=== PATIENT | female | born 1935 | race Caucasian/White ===

== ENCOUNTER 2021-06-14 12:01 | Emergency (ER) | payer MEDICARE, OTHER ==
[2021-06-14 13:30] LABS: HEMOGLOBIN 11.7 gm/dl (12.3-15.3); RED BLOOD COUNT 3.7 M/UL (4.00-5.10); WHITE BLOOD COUNT 8.4 K/UL (4.5-11.0)
[2021-06-14 14:05] LABS: BUN/CREATININE RATIO 18 (0-10)
== END 2021-06-14 17:04 | disposition home or self-care (01) ==
LOC: EDBD 12:01 → ER1 12:01
DX: J44.9 Chronic obstructive pulmonary disease, unspecified (principal); I10 Essential (primary) hypertension; G45.9 Transient cerebral ischemic attack, unspecified; R47.81 Slurred speech; G89.29 Other chronic pain; K21.9 Gastro-esophageal reflux disease without esophagitis; Z79.82 Long term (current) use of aspirin; E03.9 Hypothyroidism, unspecified; Z20.822 Contact with and (suspected) exposure to COVID-19
CPT/HCPCS: 70450; 70496; 70498; 71045; 80053; 81001; 82140; 82550; 82553; 82803; 83605; 83690; 83874; 83880; 84439; 84443; 84484; 85025; 93005; 99285; Q9967; U0002